=== PATIENT | female | born 1960 | race Caucasian/White ===

== ENCOUNTER 2016-11-20 16:09 | Emergency (ER) | payer BC ==
--- NOTE | 2016-11-20 18:01 | UC ---
Complaint Female HPI - HPI Summary HPI Summary: Woke today with dysuria, frequency, headache, low back pain. Feels like past UTIs. Denies UTI in last year, no abx in last 3 months. - History Of Current Complaint Chief Complaint: [facility] Stated Complaint: URINARY COMPLAINT Time Seen by Provider: 11/20/16 17:35 Hx Obtained From: Patient ?: No Onset/Duration: Gradual Onset, Lasting Hours Timing: Constant Severity Initially: Moderate Severity Currently: Moderate Character: Burning Aggravating Factor(s): Urination Associated Signs And Symptoms: Negative: Fever, Back Pain, Vaginal Bleeding/ Discharge, Vaginal Discharge, Vomiting(# Of Episodes =) - Allergies/Home Medications Allergies/Adverse Reactions: Allergies Allergy/AdvReac Type Severity Reaction Status Date / Time No Known Allergies Allergy Verified 11/20/16 17:35 Home Medications: Home Medications Phenazopyridine HCl [Azo Urinary Pain Relief E] 97.5 mg PO PRN 11/20/16 [History ] PMH/Surg Hx/FS Hx/Imm Hx Previously Healthy: Yes - Surgical History Surgical History: Yes Surgery Procedure, Year, and Place: HYSTERECTOM, APPENDECTOMY - Family History Known Family History: Positive: Hypertension, Renal Disease - Social History Alcohol Use: Occasionally Substance Use Type: None Smoking Status (MU): Never Smoked Tobacco Review of Systems Constitutional: Negative Skin: Negative Eyes: Negative ENT: Negative Respiratory: Negative Cardiovascular: Negative Gastrointestinal: Negative Genitourinary: Dysuria, Frequency Motor: Negative Neurovascular: Negative Musculoskeletal: Negative Neurological: Negative Psychological: Negative All Other Systems Reviewed And Are Negative: Yes Physical Exam Triage Information Reviewed: Yes Appearance: Well-Appearing, No Pain Distress, Well-Nourished Vital Signs: Initial Vital Signs Temp 97.9 F 11/20/16 17:37 Pulse 63 11/20/16 17:37 Resp 14 11/20/16 17:37 BP 146/72 11/20/16 17:37 Pulse Ox 100 11/20/16 17:37 Vital Signs Reviewed: Yes Eye Exam: Normal Eyes: Positive: Conjunctiva Clear ENT Exam: Normal ENT: Positive: Normal ENT inspection, Hearing grossly normal, Pharynx normal, TMs normal Dental Exam: Normal Neck exam: Normal Neck: Positive: Supple, Nontender, No Lymphadenopathy Respiratory Exam: Normal Respiratory: Positive: Chest non-tender, Lungs clear, Normal breath sounds, No respiratory distress, No accessory muscle use Cardiovascular Exam: Normal Cardiovascular: Positive: RRR, No Murmur Abdomen Description: Positive: Soft. Negative: CVA Tenderness (R), CVA Tenderness (L) Musculoskeletal Exam: Normal Neurological Exam: Normal Psychological Exam: Normal Skin Exam: Normal Complaint Female Dx - Differential Dx/Diagnosis Provider Diagnoses: UTI Discharge - Discharge Plan Condition: Stable Disposition: HOME Prescriptions: Nitrofurantoin Monohyd Macro [Macrobid] 100 mg PO BID #[id number] cap Patient Education Materials: Urinary Tract Infection in Women (ED) Referrals: Haylie Zaragoza, [employer]ESSIONAL [Primary Care Provider] - If Needed
[2016-11-20] MEDS ORDERED: Nitrofurantoin Macrocrystals* 50 MG CAP PO ONE (18:03)
[2016-11-20 18:06] VITALS: BP 128/82
== END 2016-11-20 18:11 | disposition home or self-care (01) ==
LOC: UCCORT 16:09
DX: N39.0 Urinary tract infection, site not specified (principal); Z87.440 Personal history of urinary (tract) infections
CPT/HCPCS: 87077; 87086; 87186; 99212; A9270-GY; G0463

== ENCOUNTER 2017-02-02 09:46 | Day surgery (SDC) | payer BC ==
[~2017-02-02 09:46] MED LIST: Buffered Lidocaine 1% SYR 3ML* 3 ML/SYR SYRINGE INTRADERM ONE; Famotidine IV* 10 MG/ML 2 ML (20 mg) IV ONE; Morphine INJ* 2 MG/ML 1 ML SYRINGE IV PRN; PROCHLORPERAZINE INJ 5 MG/ML 2 ML VIAL IV PRN; Scopolamine 1.5 mg* PATCH TRANSDERM ONE; fentaNYL* 50 MCG/ML 2 ML VIAL (100 MCG VIAL) IV PRN; oxyCODONE/Acetamin 5/325 MG* TAB PO PRN
[2017-02-02] MEDS ORDERED: Famotidine IV* 10 MG/ML 2 ML (20 mg) ONE (09:55)
[2017-02-02] MEDS ORDERED: Scopolamine 1.5 mg* PATCH ONE (09:55)
[2017-02-02] MEDS ORDERED: ceFAZolin 2 GM PREMIX(*) 2 GM/50 ML BAG IVPB ONE (09:55)
[2017-02-02] MEDS ORDERED: KETAMINE HCL* 50 MG/ML 10 ML VIAL ONE (11:36)
[2017-02-02] MEDS ORDERED: Midazolam* 1 MG/ML 5 ML VIAL (5 MG) ONE (11:36)
[2017-02-02] MEDS ORDERED: fentaNYL* 50 MCG/ML 2 ML VIAL (100 MCG VIAL) ONE (11:36)
[2017-02-02] MEDS ORDERED: Bupivacaine 0.25% SDV* 30 ML ONE (12:16)
[2017-02-02] MEDS ORDERED: Propofol* 10 MG/ML 20 ML BTL IV PUSH ONE (12:28)
[2017-02-02] MEDS ORDERED: Ondansetron INJ* 2 MG/ML VIAL ONE (12:28)
[2017-02-02] MEDS ORDERED: Lidocaine 2% PF * 5 ML VIAL ONE (12:28)
[2017-02-02] MEDS ORDERED: Glycopyrrolate IV* 0.2 MG/ML 1 ML VIAL ONE (12:37)
[2017-02-02 13:27] VITALS: BP 115/79
[2017-02-05] MEDS ORDERED: Scopolomine PATCH Remove* 1 NOTE MISC PATCH OFF ONE (06:00)
== END 2017-02-02 13:22 | disposition home or self-care (01) ==
LOC: OREAST 09:46
PROVIDERS: ATTEND Plastic Surgery
DX: M65.331 Trigger finger, right middle finger (principal)
CPT/HCPCS: A9270-GY; J0690; J2250; J2405; J2704; J3010